=== PATIENT | male | born 1950 | race Caucasian/White ===

== ENCOUNTER 2018-10-03 08:59 | Observation (INO) | payer MEDICARE ==
[2018-10-03] MEDS ORDERED: NS 0.9% 1000 ML** 1,000 ML IV ONE (09:12)
--- NOTE | 2018-10-03 09:15 | ED ---
Neurological HPI - HPI Summary HPI Summary: Pt. is a 67 y.o male who presents to the ER for numbness to right side of face and tingling in bilateral arms that started 30 minutes prior to arrival. Last known well, 829. Pt. states him and his were driving and pt. acutely developed numbness to right side of face and arm tingling. Past medical hx of HTN, TIA, borderline DM, obesity. Pt. states him and his have been traveling for a few weeks and he has been having issues managing his BP over the last few weeks. Pt. states that sxs are similar to prior TIA. Pt. denies CP , SOB, abd. pain, V/D. Symptoms are severe in severity. No current modifying factors. - History of Current Complaint Stated Complaint: FACE IN NUMB/TINGLING PER PT Hx Obtained From: Patient - Additional Pertinent History Primary Care Physician: KEVIN - Allergy/Home Medications Allergies/Adverse Reactions: Allergies Allergy/AdvReac Type Severity Reaction Status Date / Time No Known Allergies Allergy Verified 06/08/15 14:30 Home Medications: Home Medications Amoxicillin 500 mg PO DAILY 10/03/18 [History Confirmed 10/03/18] Losartan TAB* 25 mg PO DAILY 10/03/18 [History Confirmed 10/03/18] Pravastatin (NF) 10 mg PO DAILY 10/03/18 [History Confirmed 10/03/18] PMH/Surg Hx/FS Hx/Imm Hx Previously Healthy: Yes Cardiovascular History: Reports: Hx Hypertension Denies: Hx Pacemaker/ICD GI History: Reports: Hx Diverticulosis Sensory History: Reports: Hx Contacts or Glasses Denies: Hx Hearing Aid Opthamlomology History: Reports: Hx Contacts or Glasses Psychiatric History: Denies: Hx Panic Disorder - Surgical History Surgery Procedure, Year, and Place: KNEE 12/31/14 Infectious Disease History: Denies: Traveled Outside the [place] in Last 30 Days - Social History Alcohol Use: Daily Substance Use Type: Reports: None Smoking Status (MU): Former Smoker Review of Systems Constitutional: Negative Eyes: Negative ENT: Negative Cardiovascular: Negative Respiratory: Negative Gastrointestinal: Negative Genitourinary: Negative Musculoskeletal: Negative Positive: Paresthesia All Other Systems Reviewed And Are Negative: Yes Physical Exam Triage Information Reviewed: Yes Vital Signs Reviewed: Yes Appearance: Positive: Well-Appearing - Pt. sitting up in bed in NAD. Anxious. present. Skin: Positive: Warm, Dry Head/Face: Positive: Normal Head/Face Inspection, Other - Decreased sensation to right side of face. Eyes: Positive: Normal, EOMI, JANES, Conjunctiva Clear Neck: Positive: Supple. Negative: Nuchal Rigidity Respiratory/Lung Sounds: Positive: Clear to Auscultation, Breath Sounds Present Cardiovascular: Positive: Normal, RRR. Negative: Murmur Musculoskeletal: Positive: Normal, Strength/ROM Intact Neurological: Positive: Normal, Alert, Oriented to Person Place, Time, Heel to Toe - normal, Finger to Nose - normal, Facial Symmetry, Speech Normal. Negative : Sensory/Motor Intact - Decreased sensation to right side of face., Cerebellar Dysfunction, Disoriented, Facial Droop, Slurred Speech, Pronator Drift Present Psychiatric: Positive: Affect/Mood Appropriate - Donora Coma Scale Best Eye Response: 4 - Spontaneous Best Motor Response: 6 - Obeys Commands Best Verbal Response: 5 - Oriented Coma Scale Total: 15 Diagnostics - Laboratory Result Diagrams: 10/03/18 09:32 10/03/18 09:32 Lab Statement: Any lab studies that have been ordered have been reviewed, and results considered in the medical decision making process. NIH Scale - NIH Scale Level of Consciousness: Alert/Keenly Responsive Ask Patient the Month and His/Her Age: Both Correct Ask Pt to Open/Close Eyes and Mechanical Maintenance/Release Non-Paretic Hand: Both Correctly Best Gaze (Only Horizontal Eye Movement): Normal Visual Field Testing: No Visual Loss Facial Paresis-Pt to Smile & Close Eyes or Grimace Symmetry: Normal/Symmetrical Motor Function - Right Arm: No Drift-Holds 10 Seconds Motor Function - Left Arm: No Drift-Holds 10 Seconds Motor Function - Right Leg: No Drift-Holds 10 Seconds Motor Function - Left Leg: No Drift-Holds 10 Seconds Limb Ataxia-Must be out of Proportion to Weakness Present: Absent Sensory (Use Pinprick to Test Arms/Legs/Trunk/Face): Pinprick Less on Affected Best Language (Describe Picture, Name Items): No Aphasia Dysarthria (Read Several Words): Normal Extinction and Inattention: No Abnormality Total Score: 1 Course/Dx - Course Course Of Treatment: Pt. presenting for decreased sensation to right side of face and tingling to bilateral arms. NIH stroke scale is 1. Last known well 0830. Code prakash called. HTN at 193/108. 0925: CT brain is negative per Dr. Gant. Pt. examined by neurology, Dr. Herrera. He recommends admission for further work up, MRI brain, CTA head and neck, plavix, ASA, and echo. Pending CTAs. Labs unremarkable other than mild hyperglycemia. ECG done at 0928 shows a sinus rhythm of 67bpm, left axis deviation, no ST elevation of depression. CTA negative for acute findings per radiology. BP improved to 158/88. Will admit for MRI, echo and further evaluation. I spoke with Dr. Fuller and she will accept pt. to her service. - Differential Dx Differential Diagnoses Neuro: Positive: Ding's Palsy, Cerebrovascular Accident, Intracranial Bleed, Medication Reaction, Transient Ischemic Attack, Vasovagal Reaction - Diagnoses Provider Diagnoses: TIA (transient ischemic attack) During the Visit The Following Alert/Code Occurred: Code Sosa - Physician Notifications Discussed Care Of Patient With: Mark Herrera Time Discussed With Above Provider: 09:20 Instructed by Provider To: Admit As Inpatient - Critical Care Time Critical Care Time: 30-74 min - 30 minutes including direct pt. care and consultation. Excludes billable procedures. Discharge - Sign-Out/Discharge Documenting (check all that apply): Patient Departure Patient Received Moderate/Deep Sedation with Procedure: No - Discharge Plan Condition: Stable Disposition: ADMITTED TO [facility] Referrals: Bao Hoffman MD [Primary Care Provider] - - Billing Disposition and Condition Condition: STABLE Disposition: Admitted to [facility]
--- OUTSIDE RECORDS SUMMARY | 2018-10-03 09:17 | XMS REPORT | Continuity of Care Document ---
:1950 External Reference #:[id number] Author Name Camila Pandya Care Team Providers Name Role Phone Bao Hoffman III, MD Primary Care Physician Unavailable Payers Date Identification Numbers Payment Provider Subscriber Policy Number: [id number] Medicare Ruth Hu JR PayID: [id number] [address] [place] [address] Policy Number: [id number] [facility] Ruth Hu JR PayID: [id number] [address] [place] [address] Effective: 2009 Policy Number: Jaspal Hu JR [id number] Expires: 2009 PayID: [id number] [address] [address] [address] Effective: 2007 Policy Number: Jaspal Hu JR [id number] Expires: 2009 PayID: [id number] [address] [address] Effective: 2009 Policy Number: Jaspal Hu JR [id number] Expires: 2011 PayID: [id number] [address] [address] Effective: 2011 Policy Number: [id number] [facility] Ruth Hu JR Expires: 2013 PayID: [id number] [address] [address] [place] [address] Advance Directives Description No Information Available Problems Active Problems Provider Date Benign essential hypertension Bao Hoffman M.D. Onset: 01/29/2011 Impaired fasting glycaemia Bao Hoffman M.D. Onset: 01/29/2011 Sleep apnea Bao Hoffman M.D. Onset: 01/29/2011 Arthralgia of the lower leg Bao Hoffman M.D. Onset: 08/30/2011 Localized, primary osteoarthritis of the Bao Hoffman M.D. Onset: 2012 lower leg Allergic rhinitis Bao Hoffman M.D. Onset: 10/31/2012 Localized, primary osteoarthritis Bao Hoffman M.D. Onset: 05/06/2014 Essential hypertension Bao Hoffman M.D. 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[facility] [employer] Cigarette Use Quit - Age 39 ETOH Use Currently consumes 5-6 "small" glasses alcohol of wine daily Tobacco Use Start: Unknown End: Patient is a former Unknown smoker Smoking Status Reviewed: 09/29/18 Patient is a former smoker Exercise Exercises regularly walks 2 miles 3 Type/Frequency times a week, activa around the house Allergies, Adverse Reactions, Alerts Active Allergies Reaction Severity Comments Date Ultram Nausea, vomiting, diarrhea 09/06/2011 Inactive Allergies NKDA 02/09/2007 Medications Active Medications SIG Qnty Indications Ordering Provider Date Pravastatin Sodium take one tablet 90tabs E78.00 Bao Hoffman, 2016 10mg by mouth every M.D. Tablets evening Flonase Allergy spray 1 spray in 16units Bao Hoffman, 11/27/2015 Relief each nostril M.D. 50mcg/Act once a day Suspension Losartan Potassium take one tablet 90tabs I10 Bao Hoffman, 06/16/2015 25mg by mouth every M.D. Tablets day Toprol XL take one tablet 90tabs Bao Hoffman, 02/09/2007 50mg Tablets by mouth every M.D. ER 24HR day History Medications Cyclobenzaprine HCL one by mouth 30tabs M54.5 Bao Diggs 11/27/2015 - 10mg three times a Ally Hoffman 07/26/2016 Tablets day as needed spasm Aleve as needed Bao Diggs 06/16/2015 - 220mg Tablets Ally Hoffman 07/24/2015 Aspir-81 1 by mouth 100tabs Other Ordering 06/10/2015 - 81mg Tablets DR every day Provider 09/29/2018 Zostavax 1 dose s/c 1units Bao Diggs 05/06/2014 - 30909Mle/0.65ML Ally Hoffman 07/24/2015 Solution Rec Ultram 1-2 po qid prn 715.16 Richardson Cochran, 09/06/2011 - 50mg Tablets M.DPrincess 04/07/2012 Ultram sig 1 po q8h 40tabs 715.16 Richardson Cochran, 09/03/2011 - 50mg Tablets prn Cee.Marielena 09/06/2011 Dyazide 1 po qd 90caps Bao Diggs 02/09/2007 - 37.5-25 Capsules Ally Hoffman 06/28/[address] [place] [address] 16[place] Diggs 02/09/2007 - 50mcg/Act In Each Nostril Ally Hoffman 06/16/2015 Suspension Daily as Directed Ibuprofen 3 daily prn Unknown - 200mg Capsules 06/10/2015 Tylenol Arthritis Pain 2 tab twice a Bao Diggs - day as needed Ally Hoffman 09/29/2018 650mg Tablets ER Turmeric 1 po qd Unknown - 450mg Capsules 01/16/2017 Medications Administered in Office Medication SIG Qnty Indications Ordering Provider Date Influenza Virus Vaccine Unknown 02/27/2015 Injection Influenza Virus Vaccine Unknown 03/30/2014 Injection Influenza Virus Vaccine Bao Hoffman M.D. 03/30/2013 Injection Injection Hyaluronan Or Richardson Cochran M.D. 09/24/2011 Derivative, Euflexxa Per Dose Injection Immunizations CPT Code Status Date Vaccine Lot # [id number] Given 07/26/2016 Pneumonia Vaccine [id number] Given 06/16/2015 Pneumococcal Conjugate Vaccine 13 Valent For [id number] Intramuscular Use [id number] Given 05/30/2014 Zoster (Zostavax) [id number] Given 07/28/2011 Tdap - Tetanus/Diptheria/Acellular Pertussis [id number] Given 09/26/2001 Td (History By Patient) Vital Signs Date Vital Result Comment 09/29/2018 10:19am Height 73 inches 6'1" Weight 291.50 lb Heart Rate 63 /min BP Systolic 186 mmHg BP Diastolic 102 mmHg Body Temperature 98.4 F O2 % BldC Oximetry 98 % BMI (Body Mass Index) 38.5 kg/m2 07/18/2017 10:38am Height 73.5 inches 6'1.50" Weight 281.19 lb Heart Rate 53 /min BP Systolic Sitting 128 mmHg BP Diastolic Sitting 78 mmHg O2 % BldC Oximetry 93 % BMI (Body Mass Index) 36.6 kg/m2 01/17/2017 9:57am Weight 288.00 lb Heart Rate 57 /min BP Systolic Sitting 144 mmHg BP Diastolic Sitting 80 mmHg Body Temperature 97.2 F O2 % BldC Oximetry 98 % 07/26/2016 3:37pm Weight 287.00 lb Heart Rate 60 /min BP Systolic Sitting 142 mmHg BP Diastolic Sitting 84 mmHg Respiratory Rate 15 /min Body Temperature 98.2 F O2 % BldC Oximetry 98 % 11/27/2015 4:07pm Height 73.5 inches 6'1.50" Weight 280.25 lb Heart Rate 53 /min BP Systolic Sitting 158 mmHg BP Diastolic Sitting 88 mmHg Body Temperature 97.6 F O2 % BldC Oximetry 96 % BMI (Body Mass Index) 36.5 kg/m2 07/24/2015 2:57pm Height 73.5 inches 6'1.50" Weight 278.25 lb BP Systolic 118 mmHg BP Diastolic 76 mmHg Body Temperature 96.7 F O2 % BldC Oximetry 98 % BMI (Body Mass Index) 36.2 kg/m2 06/16/2015 2:26pm Height 73.5 inches 6'1.50" Weight 285.00 lb Heart Rate 55 /min BP Systolic 143 mmHg BP Diastolic 82 mmHg Body Temperature 97.1 F O2 % BldC Oximetry 99 % BMI (Body Mass Index) 37.1 kg/m2 05/06/2014 3:11pm Height 73.5 inches 6'1.50" Weight 301.00 lb Heart Rate 64 /min BP Systolic Sitting 152 mmHg BP Diastolic Sitting 94 mmHg Body Temperature 97.1 F BMI (Body Mass Index) 39.2 kg/m2 07/06/2013 8:47am Height 73.5 inches 6'1.50" Weight 297.75 lb Heart Rate 60 /min BP Systolic Sitting 128 mmHg BP Diastolic Sitting 74 mmHg BMI (Body Mass Index) 38.7 kg/m2 10/31/2012 8:53am Height 73.75 inches 6'1.75" Weight 304.00 lb Heart Rate 78 /min BP Systolic Sitting 138 mmHg BP Diastolic Sitting 76 mmHg BMI (Body Mass Index) 39.3 kg/m2 04/07/2012 9:40am Height 73.75 inches 6'1.75" Weight 303.00 lb Heart Rate 60 /min BP Systolic Sitting 138 mmHg BP Diastolic Sitting 88 mmHg BMI (Body Mass Index) 39.2 kg/m2 09/03/2011 9:51am Height 73.75 inches 6'1.75" Weight 299.00 lb BMI (Body Mass Index) 38.6 kg/m2 08/30/2011 10:56am Height 73.75 inches 6'1.75" Weight 299.00 lb Heart Rate 60 /min BP Systolic Sitting 146 mmHg BP Diastolic Sitting 76 mmHg BMI (Body Mass Index) 38.6 kg/m2 07/28/2011 8:50am Height 73.75 inches 6'1.75" Weight 299.75 lb Heart Rate 64 /min BP Systolic Sitting 138 mmHg BP Diastolic Sitting 86 mmHg BMI (Body Mass Index) 38.7 kg/m2 01/29/2011 9:13am Height 73.5 inches 6'1.50" Weight 295.00 lb Heart Rate 78 /min BP Systolic Sitting 138 mmHg l BP Diastolic Sitting 72 mmHg l BMI (Body Mass Index) 38.4 kg/m2 07/31/2010 9:05am Weight 284.00 lb Heart Rate 66 /min BP Systolic 140 mmHg BP Diastolic 90 mmHg 02/06/2010 9:02am Weight 294.00 lb Heart Rate 78 /min BP Systolic Sitting 168 mmHg BP Diastolic Sitting 82 mmHg 08/01/2009 9:45am Weight 296.00 lb Heart Rate 64 /min BP Systolic Sitting 150 mmHg BP Diastolic Sitting 82 mmHg 06/28/2008 9:13am Weight 277.00 lb Heart Rate 56 /min BP Systolic Sitting 104 mmHg BP Diastolic Sitting 80 mmHg 06/20/2007 9:10am Height 74 inches 6'2" Weight 277.00 lb Heart Rate 76 /min BP Systolic Sitting 116 mmHg BP Diastolic Sitting 78 mmHg BMI (Body Mass Index) 35.6 kg/m2 Results Test Date Facility Test Result H/L Range Note Laboratory test 09/29/2018 [facility] Hemoglobin A1c 5.8 5-7 finding Laboratory test 07/18/2017 [facility] Hemoglobin A1c 5.6 5-7 finding Laboratory test 07/14/2017 [facility] PSA Screening 0.190 ng/mL N 0-4.000 1 finding [address] [place] [address] [phone] Comp Metabolic 07/14/2017 [facility] Sodium 137 mmol/L N 133- 145 Panel [address] [place] [address] [phone] Potassium 4.3 mmol/L N 3.5-5.0 Chloride 104 mmol/L N 101-111 Co2 Carbon Dioxide 27 mmol/L N 22-32 Anion Gap 6 mmol/L N 2-11 Glucose 126 mg/dL High 70-100 Blood Urea Nitrogen 17 mg/dL N 6-24 Creatinine 0.78 mg/dL N 0.67-1.17 BUN/Creatinine Ratio 21.8 High 8-20 Calcium 8.9 mg/dL N 8.6-10.3 Total Protein 6.3 g/dL Low 6.4-8.9 Albumin 4.2 g/dL N 3.2-5.2 Globulin 2.1 g/dL N 2-4 Albumin/Globulin Ratio 2.0 N 1-3 Total Bilirubin 0.50 mg/dL N 0.2-1.0 Alkaline Phosphatase 68 U/L N 34-104 Alt 30 U/L N 7-52 Ast 19 U/L N 13-39 Egfr Non- 99.3 >60 Egfr 127.7 >60 2 Lipid Profile 07/14/2017 [facility] Triglycerides 202 mg/dL 3 (Trig/Chol/HDL) [address] [place] [address] [phone] Cholesterol 137 mg/dL 4 HDL Cholesterol 33.5 mg/dL 5 LDL Cholesterol 63 mg/dL 6 Lipid Profile 07/26/2016 [facility] Triglycerides 135 mg/dL N 7 (Trig/Chol/HDL) [address] [place] [address] [phone] Cholesterol 157 mg/dL N 8 HDL Cholesterol 40.8 mg/dL N 9 LDL Cholesterol 89 mg/dL N 10 Comp Metabolic Panel 07/26/2016 [facility] Sodium 137 mmol/L N 133-145 [address] [place] [address] [phone] Potassium 4.4 mmol/L N 3.5-5.0 Chloride 102 mmol/L N 101-111 Co2 Carbon Dioxide 29 mmol/L N 22-32 Anion Gap 6 mmol/L N 2-11 Glucose 145 mg/dL High 70-100 Blood Urea Nitrogen 15 mg/dL N 6-24 Creatinine 0.80 mg/dL N 0.67-1.17 BUN/Creatinine Ratio 18.8 N 8-20 Calcium 9.1 mg/dL N 8.6-10.3 Total Protein 6.4 g/dL N 6.4-8.9 Albumin 4.1 g/dL N 3.2-5.2 Globulin 2.3 g/dL N 2-4 Albumin/Globulin Ratio 1.8 N 1-3 Total Bilirubin 0.60 mg/dL N 0.2-1.0 Alkaline Phosphatase 58 U/L N 34-104 Alt 32 U/L N 7-52 Ast 20 U/L N 13-39 Egfr Non- 96.7 N >60 Egfr 124.4 N >60 11 Basic Metabolic Panel 07/04/2015 [facility] Sodium 139 mmol/L N 133-145 [address] [place] [address] [phone] Potassium 4.3 mmol/L N 3.5-5.0 Chloride 104 mmol/L N 101-111 Co2 Carbon Dioxide 28 mmol/L N 22-32 Anion Gap 7 mmol/L N 2-11 Glucose 99 mg/dL N 70-100 Blood Urea Nitrogen 17 mg/dL N 6-24 Creatinine 0.85 mg/dL N 0.67-1.17 BUN/Creatinine Ratio 20.0 N 8-20 Calcium 8.9 mg/dL N 8.6-10.3 Egfr Non- 90.5 N >60 Egfr 116.3 N >60 12 Laboratory test 07/04/2015 [facility] Uric Acid 6.1 mg/dL N 4.4-7.6 finding [address] [place] [address] [phone] CBC Auto Diff 06/08/2015 [facility] White Blood 5.4 10^3/uL N 3.5-10.[address] [place] [address] [phone] Red Blood Count 4.71 10^6/uL N 4.0-5.4 Hemoglobin 15.0 g/dL N 14.0-18.0 Hematocrit 44 % N 42-52 Mean Corpuscular Volume 93 fL N 80-94 Mean Corpuscular Hemoglobin 32 pg High 27-31 Mean Corpuscular HGB Conc 34 g/dL N 31-36 Red Cell Distribution Width 13 % N 10.5-15 Platelet Count 153 10^3/uL N 150-450 Mean Platelet Volume 8 um3 N 7.4-10.4 Abs Neutrophils 3.3 10^3/uL N 1.5-7.7 Abs Lymphocytes 1.5 10^3/uL N 1.0-4.8 Abs Monocytes 0.5 10^3/uL N 0-0.8 Abs Eosinophils 0.1 10^3/uL N 0-0.6 Abs Basophils 0 10^3/uL N 0-0.2 Abs Nucleated RBC 0.01 10^3/uL N Granulocyte % 60.6 % N 38-83 Lymphocyte % 27.7 % N 25-47 Monocyte % 9.4 % High 1-9 Eosinophil % 1.8 % N 0-6 Basophil % 0.5 % N 0-2 Nucleated Red Blood Cells % 0.1 N Inr/Protime 06/08/2015 [facility] Inr 1.09 N 0.89-1.[address] [place] [address] [phone] Laboratory test 06/08/2015 [facility] Hemoglobin A1c 5.1 % N Less than [address] (Glyco HGB) 6.0 [place] [address] [phone] Laboratory test 06/08/2015 [facility] Partial 31.9 N 26.0- 36.[address] [place] [address] PTT [phone] Comp Metabolic 06/08/2015 [facility] Sodium 137 mmol/L N 133- [address] [place] [address] [phone] Potassium 4.2 mmol/L N 3.5-5.0 Chloride 105 mmol/L N 101-111 Co2 Carbon Dioxide 27 mmol/L N 22-32 Anion Gap 5 mmol/L N 2-11 Glucose 110 mg/dL High 70-100 Blood Urea Nitrogen 13 mg/dL N 6-24 Creatinine 0.84 mg/dL N 0.67-1.17 BUN/Creatinine Ratio 15.5 N 8-20 Calcium 9.2 mg/dL N 8.6-10.3 Total Protein 6.6 g/dL N 6.4-8.9 Albumin 4.3 g/dL N 3.2-5.2 Globulin 2.3 g/dL N 2-4 Albumin/Globulin Ratio 1.9 N 1-3 Total Bilirubin 0.80 mg/dL N 0.2-1.0 Alkaline Phosphatase 58 U/L N 34-104 Alt 46 U/L N 7-52 Ast 27 U/L N 13-39 Egfr Non- 91.7 N >60 Egfr 117.9 N >60 14 Laboratory test 06/08/2015 [facility] Troponin-I (TnI) 0.00 ng/ mL N <0.03 15 finding [address] [place] [address] [phone] Lipid Profile 06/08/2015 [facility] Triglycerides 170 mg/dL N 16 (Trig/Chol/HDL) [address] [place] [address] [phone] Cholesterol 157 mg/dL N 17 HDL Cholesterol 39.7 mg/dL N 18 LDL Cholesterol 83 mg/dL N 19 CBC Auto Diff 06/08/2015 [facility] White Blood 5.4 10^3/uL N 3.5-10.[address] [place] [address] [phone] Red Blood Count 4.71 10^6/uL N 4.0-5.4 Hemoglobin 15.0 g/dL N 14.0-18.0 Hematocrit 44 % N 42-52 Mean Corpuscular Volume 93 fL N 80-94 Mean Corpuscular Hemoglobin 32 pg High 27-31 Mean Corpuscular HGB Conc 34 g/dL N 31-36 Red Cell Distribution Width 13 % N 10.5-15 Platelet Count 153 10^3/uL N 150-450 Mean Platelet Volume 8 um3 N 7.4-10.4 Abs Neutrophils 3.3 10^3/uL N 1.5-7.7 Abs Lymphocytes 1.5 10^3/uL N 1.0-4.8 Abs Monocytes 0.5 10^3/uL N 0-0.8 Abs Eosinophils 0.1 10^3/uL N 0-0.6 Abs Basophils 0 10^3/uL N 0-0.2 Abs Nucleated RBC 0.01 10^3/uL N Granulocyte % 60.6 % N 38-83 Lymphocyte % 27.7 % N 25-47 Monocyte % 9.4 % High 1-9 Eosinophil % 1.8 % N 0-6 Basophil % 0.5 % N 0-2 Nucleated Red Blood Cells % 0.1 N Laboratory test 06/08/2015 [facility] Inr/Protime 1.09 N 0.89- 1.11 finding [address] [place] [address] [phone] Partial Thrombo Time PTT 31.9 seconds N 26.0-36.3 Comp Metabolic Panel 06/08/2015 [facility] Sodium 137 mmol/L N 133-145 [address] [place] [address] [phone] Potassium 4.2 mmol/L N 3.5-5.0 Chloride 105 mmol/L N 101-111 Co2 Carbon Dioxide 27 mmol/L N 22-32 Anion Gap 5 mmol/L N 2-11 Glucose 110 mg/dL High 70-100 Blood Urea Nitrogen 13 mg/dL N 6-24 Creatinine 0.84 mg/dL N 0.67-1.17 BUN/Creatinine Ratio 15.5 N 8-20 Calcium 9.2 mg/dL N 8.6-10.3 Total Protein 6.6 g/dL N 6.4-8.9 Albumin 4.3 g/dL N 3.2-5.2 Globulin 2.3 g/dL N 2-4 Albumin/Globulin Ratio 1.9 N 1-3 Total Bilirubin 0.80 mg/dL N 0.2-1.0 Alkaline Phosphatase 58 U/L N 34-104 Alt 46 U/L N 7-52 Ast 27 U/L N 13-39 Egfr Non- 91.7 N >60 Egfr 117.9 N >60 20 Laboratory test 06/08/2015 [facility] Troponin-I (TnI) 0.00 ng/ mL N <0.03 21 finding [address] [place] [address] [phone] Lipid Profile 06/08/2015 [facility] Triglycerides 170 mg/dL N 22 (Trig/Chol/HDL) [address] [place] [address] [phone] Cholesterol 157 mg/dL N 23 HDL Cholesterol 39.7 mg/dL N 24 LDL Cholesterol 83 mg/dL N 25 Laboratory test 08/21/2014 [facility] PSA Screening 0.226 ng/mL N 0-4.000 26 finding [address] [place] [address] [phone] Basic Metabolic 08/21/2014 [facility] Sodium 138 mmol/L N 133- 145 Panel [address] [place] [address] [phone] Potassium 4.3 mmol/L N 3.5-5.0 Chloride 106 mmol/L N 101-111 Co2 Carbon Dioxide 25 mmol/L N 22-32 Anion Gap 7 mmol/L N 2-11 Glucose 128 mg/dL High 70-100 Blood Urea Nitrogen 19 mg/dL N 6-24 Creatinine 0.87 mg/dL N 0.67-1.17 BUN/Creatinine Ratio 21.8 High 8-20 Calcium 9.1 mg/dL N 8.6-10.3 Egfr Non- 88.3 N >60 Egfr 113.6 N >60 27 Laboratory test 05/06/2014 [facility] Hemoglobin A1c 5.9 5-7 finding Basic Metabolic 04/29/2014 [facility] Sodium 138 mmol/L N 133- 145 Panel [address] [place] [address] [phone] Potassium 4.4 mmol/L N 3.5-5.0 28 Chloride 106 mmol/L N 101-111 Co2 Carbon Dioxide 24 mmol/L N 22-32 Anion Gap 8 mmol/L N 2-11 Glucose 156 mg/dL High 70-100 Blood Urea Nitrogen 13 mg/dL N 6-24 Creatinine 0.90 mg/dL N 0.67-1.17 BUN/Creatinine Ratio 14.4 N 8-20 Calcium 8.8 mg/dL N 8.6-10.3 Egfr Non- 85.0 N >60 Egfr 109.3 N >60 29 Laboratory 04/29/2014 [facility] Hepatitis C Nonreactive N Nonreactive test finding [address] [place] [address] [phone] Lipid Profile 04/29/2014 [facility] Triglycerides 116 mg/dL N 30 (Trig/Chol/HD [address]) [place] [address] [phone] Cholesterol 171 mg/dL N 31 HDL Cholesterol 38.0 mg/dL N 32 LDL Cholesterol 110 mg/dL N 33 CBC Auto Diff 11/13/2012 [facility] White Blood 5.1 10^3/uL 4.8-10.[address] [place] [address] [phone] Red Blood Count 4.66 10^6/uL 4.0-5.4 Hemoglobin 15.5 g/dL 14.0-18.0 Hematocrit 44 % 42-52 Mean Corpuscular Volume 94 fL 80-94 Mean Corpuscular Hemoglobin 33 pg High 27-31 Mean Corpuscular HGB Conc 36 g/dL 31-36 Red Cell Distribution Width 13 % 10.5-15 Platelet Count 148 10^3/uL Low 150-450 Mean Platelet Volume 9 um3 7.4-10.4 Abs Neutrophils 2.9 10^3/uL 1.5-7.7 Abs Lymphocytes 1.7 10^3/uL 1.0-4.8 Abs Monocytes 0.5 10^3/uL 0-0.8 Abs Eosinophils 0.1 10^3/uL 0-0.6 Abs Basophils 0 10^3/uL 0-0.2 Abs Nucleated RBC 0.01 10^3/uL Granulocyte % 55.8 % 38-83 Lymphocyte % 32.2 % 25-47 Monocyte % 10.3 % High 1-9 Eosinophil % 1.4 % 0-6 Basophil % 0.3 % 0-2 Nucleated Red Blood Cells % 0.3 Comp Metabolic Panel 11/13/2012 [facility] Sodium 137 mmol/L 133-[address] [place] [address] [phone] Potassium 4.3 mmol/L 3.5-5.0 Chloride 106 mmol/L 101-111 Co2 Carbon Dioxide 27.0 mmol/L 22-32 Anion Gap 4.0 mmol/L 2-11 Glucose 117 mg/dL High 70-100 Blood Urea Nitrogen 15 mg/dL 6-24 Creatinine 1.00 mg/dL 0.50-1.40 BUN/Creatinine Ratio 15.0 8-20 Calcium 8.7 mg/dL 8.1-9.9 Total Protein 6.2 g/dL 6.2-8.1 Albumin 4.2 g/dL 3.2-5.2 Globulin 2.0 g/dL 2-4 Albumin/Globulin Ratio 2.1 1-3 Total Bilirubin 1.0 mg/dL 0.4-1.5 Alkaline Phosphatase 59 U/L 30-110 Alt 58 U/L High 14-54 Ast 41 U/L 12-42 Egfr Non- 75.7 >60 Egfr 97.4 >60 34 Lipid Profile 11/13/2012 [facility] Triglycerides 92 mg/dL 40 -200 (Trig/Chol/HDL) [address] [place] [address] [phone] Cholesterol 126 mg/dL Less than 200 HDL Cholesterol 34 mg/dL Low 40-60 35 Cholesterol/HDL Ratio 3.7 Average 1-4.44 LDL Cholesterol 73.6 Less Than 100 36 Laboratory test 11/13/2012 [facility] PSA Screening 0.2 ng/mL 0-4.0 37 finding [address] [place] [address] [phone] Laboratory test 10/31/2012 [facility] Hemoglobin A1c 5.7 5-[address] [facility] 07/27/2011 [facility] TSH 2.51 0.34-5.60 Panel [address] [facility] MI[facility] [address] [phone] Comp Metabolic 07/27/2011 [facility] Sodium 139 mmol/L 135- [address] [place] [address] [phone] Potassium 4.4 mmol/L 3.5-5.0 Chloride 108 mmol/L 101-111 Co2 (Carbon Dioxide) 25.0 mmol/L 22-32 Anion Gap 6.0 mmol/L 2-11 38 Glucose 141 mg/dL High 70-100 BUN 16 mg/dL 6-24 Creatinine 1.1 mg/dL 0.50-1.40 One Over Creatinine 0.90 BUN/Creatinine Ratio 14.5 8-20 Calcium 8.8 mg/dL 8.1-9.9 Total Protein 6.1 GM/DL Low 6.2-8.1 Albumin 4.0 GM/DL 3.2-5.2 Globulin 2.1 GM/DL 2-4 Albumin/Globulin Ratio 1.9 1-3 Bilirubin Total 0.8 mg/dL 0.4-1.5 39 Alkaline Phosphatase 83 U/L 39-117 Alt (SGPT) 72 U/L High 17-63 Ast (Sgot) 39 U/L 12-42 eGFR Non- 68.1 > 60 eGFR 87.5 > 60 40 Lipid Profile 07/27/2011 [facility] Triglyceride 201 mg/dL High 40-200 (Trig/Chol/HDL) [address] [place] [address] [phone] Cholesterol 167 mg/dL Less Than 200 41 High Density Lipoprotein 34 mg/dL Low 40-60 42 Cholesterol/HDL Ratio 4.91 AVERAGE 1-4.97 Low Density Lipoprotein 93 mg/dL Less Than 100 43 CBC Auto Diff 07/27/2011 [facility] White Blood 5.5 CUMM 4.8- 10.[address] [place] [address] [phone] Red Cell Count 4.66 CUMM 4.6-6.2 Hemoglobin 15.4 g/dL 14.0-18.0 Hematocrit 43 % 42-52 Mean Corpuscular Volume 93 um3 80-94 Mean Corpuscular Hemoglob 33 pg High 27-31 Mean Corpuscular HGB Cone 36 g/dL 32-36 Redcell Distribution WDTH 12 % 10.5-15 Platelet Count 152 CUMM 150-450 Mean Platelet Volume 8.7 um3 7.4-10.4 Gran % 56.9 % 38-83 Lymph % 30.7 % 25-47 Mononuclear % 9.1 % High 1-9 Eosinophil % 2.9 % 0-6 Basophil % 0.4 % 0-2 Abs Lymphs 1.7 1.0-4.8 Abs Mononuclear 0.5 0-0.8 Absolute Neutrophil Count 3.1 1.5-7.7 Abs Eosinophils 0.2 0-0.6 Abs Basophils 0 0-0.2 Laboratory test 07/27/2011 [facility] Hemoglobin A1c 5.7 % Less Than [address] [place] [address] [phone] PSA 0.15 NG/ML 0-4 45 Laboratory test 07/31/2010 [facility] Hemoglobin A1c 5.5 5-7 finding Laboratory test 08/01/2009 [facility] PSA Screening 0.29 NG/ML 0-4 46 finding [address] [place] [address] [phone] Hemoglobin A1c 5.8 % Less Than 6.0 47 Basic Metabolic Panel 08/01/2009 [facility] Sodium 142 mmol/L 135-145 [address] [place] [address] [phone] Potassium 4.6 mmol/L 3.5-5.0 Chloride 110 mmol/L 101-111 Co2 (Carbon Dioxide) 28 mmol/L 22-32 Anion Gap 4 mmol/L 2-11 48 Glucose 110 mg/dL High 70-100 49 BUN 10 mg/dL 6-24 Creatinine 0.98 mg/dL 0.50-1.40 One Over Creatinine 1.00 BUN/Creatinine Ratio 10.2 8-20 Calcium 9.4 mg/dL 8.1-9.9 50 eGFR Non- 83.2 > 60 eGFR 100.7 > 60 51 Laboratory test 06/28/2008 [facility] Hemoglobin A1c 5.4 % < 6.0 52, 53 finding [address] [place] [address] [phone] CBC With 06/28/2008 [facility] White Blood 4.8 CUMM 4.8-10.8 Electronic Diff [address] [place] [address] [phone] Red Cell Count 4.68 CUMM 4.6-6.2 Hemoglobin 15.6 g/dL 14.0-18.0 Hematocrit 46 % 42-52 54 Mean Corpuscular Volume 93 um3 80-94 Mean Corpuscular Hemoglob 33 pg High 27-31 Mean Corpuscular HGB Cone 36 g/dL 32-36 Redcell Distribution WDTH 12 % 10.5-15 Platelet Count 167 CUMM 150-450 Mean Platelet Volume 8.3 um3 7.4-10.4 Gran % 56.8 % 38-83 Lymph % 32.6 % 25-47 Mononuclear % 8.4 % 1-9 Eosinophil % 1.9 % 0-6 Basophil % 0.3 % 0-2 Abs Lymphs 1.6 1.0-4.8 Abs Mononuclear 0.4 0-0.8 Absolute Neutrophil Count 2.7 1.5-7.7 Abs Eosinophils 0.1 0-0.6 Abs Basophils 0 0-0.2 55 Laboratory test 06/28/2008 [facility] TSH 1.72 MIU/ML 0.34- 5.60 finding [address] [place] [address] [phone] PSA Screening 0.17 NG/ML 0-4 56 Lipid Profile 06/28/2008 [facility] Triglyceride 88 mg/dL 40- 200 (Trig/Chol/HDL) [address] [place] [address] [phone] Cholesterol 164 mg/dL Less Than 200 57 High Density Lipoprotein 36 mg/dL Low 40-60 58 Cholesterol/HDL Ratio 4.56 AVERAGE 1-4.97 Low Density Lipoprotein 110 mg/dL High Less Than 100 59 Comp Metabolic Panel 06/28/2008 [facility] Sodium 136 mmol/L 135-145 [address] [place] [address] [phone] Potassium 4.7 mmol/L 3.5-5.0 Chloride 103 mmol/L 101-111 Co2 (Carbon Dioxide) 28.0 mmol/L 22-32 Anion Gap 5.0 mmol/L 2-11 60 Glucose 111 mg/dL High 70-100 61 BUN 13 mg/dL 6-24 Creatinine 0.90 mg/dL 0.50-1.40 One Over Creatinine 1.10 BUN/Creatinine Ratio 14.4 8-20 Calcium 8.9 mg/dL 8.1-9.9 62 Total Protein 5.7 GM/DL Low 6.2-8.1 Albumin 3.8 GM/DL 3.6-5.4 Globulin 1.9 GM/DL Low 2-4 Albumin/Globulin Ratio 2.0 1-3 Bilirubin Total 0.9 mg/dL 0.4-1.5 Alkaline Phosphatase 56 U/L 39-117 Alt (SGPT) 32 U/L 17-63 Ast (Sgot) 24 U/L 12-42 Comp Metabolic Panel 06/15/2007 [facility] One Over Creatinine 1.11 [address] [place] [address] [phone] Anion Gap 7.0 mmol/L 2-11 63 Albumin/Globulin Ratio 1.7 1-3 Albumin 3.8 GM/DL 3.6-5.4 Alkaline Phosphatase 56 U/L 39-117 Alt (SGPT) 34 U/L 17-63 Ast (Sgot) 24 U/L 12-42 BUN 15 mg/dL 6-24 Calcium 8.8 mg/dL 8.7-10.2 Chloride 106 mmol/L 101-111 Co2 (Carbon Dioxide) 26.0 mmol/L 22-32 Globulin 2.3 GM/DL 2-4 Glucose 118 mg/dL High 70-105 Potassium 4.2 mmol/L 3.5-5.0 Sodium 139 mmol/L 135-145 Bilirubin Total 1.0 mg/dL 0.4-1.5 Total Protein 6.1 GM/DL Low 6.2-8.1 BUN/Creatinine Ratio 16.7 8-20 Creatinine 0.9 mg/dL 0.5-1.4 Lipid Profile 06/15/2007 [facility] Cholesterol/HDL 5.07 High 1-4.97 (Trig/Chol/HDL) [address] [place] [place] [address] [phone] Cholesterol 152 mg/dL Less Than 200 64 Triglyceride 145 mg/dL 40-200 High Density Lipoprotein 30 mg/dL Low 40-60 65 Low Density Lipoprotein 93 mg/dL Less Than 100 66 Laboratory test 06/15/2007 [facility] PSA Screening 0.15 NG/ML 0-4 [address] [place] [address] [phone] TSH 2.12 MIU/ML 0.34-5.60 CBC W/ Electronic 06/15/2007 [facility] White Blood 7.0 CUMM 4.8-10.[address] [place] [address] [phone] Abs Basophils 0 0-0.2 Abs Eosinophils 0.1 0-0.6 Absolute Neutrophil Count 4.4 1.5-7.7 Abs Lymphs 1.9 1.0-4.8 Abs Mononuclear 0.6 0-0.8 Basophil % 0.4 % 0-2 Hematocrit 45 % 42-52 Hemoglobin 15.9 g/dL 14.0-18.0 Eosinophil % 1.6 % 0-6 Gran % 62.7 % 38-83 Lymph % 26.9 % 20-45 Mean Corpuscular HGB Cone 36 g/dL 32-36 Mean Corpuscular Hemoglob 33 pg High 27-31 Mean Corpuscular Volume 93 um3 80-94 Mean Platelet Volume 8.0 um3 7.4-10.4 Mononuclear % 8.4 % 1-9 Platelet Count 194 CUMM 150-450 Red Cell Count 4.83 CUMM 4.6-6.2 Redcell Distribution WDTH 12 % 10.5-15 1 Serum levels of PSA measured using the [employer] DXI Hybritech immunoassay should not be interpreted as absolute evidence of the presence or absence of disease. The PSA value should be used in conjunction with other pertinent clinical diagnostic procedures. A PSA value in the range of 0.1 to 0.6 ng/ml is indeterminate if being used as an indicator of recurrent or residual disease. The values obtained with different assay methods or kits cannot be used interchangeably. 2 Because ethnic data is not always readily available, this report includes an eGFR for both -Americans and non- Americans. The National Kidney Disease Education Program (NKDEP) does not endorse the use of the MDRD equation for patients that are not between the ages of 18 and 70, are , have extremes of body size, muscle mass, or nutritional status, or are non- or non-. According to the National Kidney Foundation, irrespective of diagnosis, the stage of the disease is based on the level of kidney function: Stage Description GFR(mL/min/1.73 m(2)) 1 Kidney damage with normal or decreased GFR 90 2 Kidney damage with mild decrease in GFR 60-89 3 Moderate decrease in GFR 30-59 4 Severe decrease in GFR 15-29 5 Kidney failure <15 (or dialysis) 3 Desirable: <150 Borderline High: 150-199 High: 200-499 Very High: >500 4 Desirable: <200 Borderline High: 200-239 High: >239 5 Low: <40 Desirable: 40-60 High: >60 6 Desirable: <100 Near Optimal: 100-129 Borderline High: 130-159 High: 160-189 Very High: >189 7 Desirable <150 Borderline high 150-199 High 200-499 Very High >500 8 Desirable <200 Borderline high 200-239 High >239 9 Low <40 Desirable: 40-60 High: >60 10 Desirable: <100 mg/dL Near Optimal: 100-129 mg/dL Borderline High: 130-159 mg/dL High: 160-189 mg/dL Very High: >189 mg/dL 11 Because ethnic data is not always readily available, this report includes an eGFR for both -Americans and non- Americans. The National Kidney Disease Education Program (NKDEP) does not endorse the use of the MDRD equation for patients that are not between the ages of 18 and 70, are , have extremes of body size, muscle mass, or nutritional status, or are non- or non-. According to the National Kidney Foundation, irrespective of diagnosis, the stage of the disease is based on the level of kidney function: Stage Description GFR(mL/min/1.73 m(2)) 1 Kidney damage with normal or decreased GFR 90 2 Kidney damage with mild decrease in GFR 60-89 3 Moderate decrease in GFR 30-59 4 Severe decrease in GFR 15-29 5 Kidney failure <15 (or dialysis) 12 Because ethnic data is not always readily available, this report includes an eGFR for both -Americans and non- Americans. The National Kidney Disease Education Program (NKDEP) does not endorse the use of the MDRD equation for patients that are not between the ages of 18 and 70, are , have extremes of body size, muscle mass, or nutritional status, or are non- or non-. According to the National Kidney Foundation, irrespective of diagnosis, the stage of the disease is based on the level of kidney function: Stage Description GFR(mL/min/1.73 m(2)) 1 Kidney damage with normal or decreased GFR 90 2 Kidney damage with mild decrease in GFR 60-89 3 Moderate decrease in GFR 30-59 4 Severe decrease in GFR 15-29 5 Kidney failure <15 (or dialysis) 13 Therapeutic target for the treatment of diabetes Mellitus patients is <7% HBA1C, and in selective patients <6.0%.Please refer to [place] [employer] Diabetic care guidelines for further information. 14 Because ethnic data is not always readily available, this report includes an eGFR for both -Americans and non- Americans. The National Kidney Disease Education Program (NKDEP) does not endorse the use of the MDRD equation for patients that are not between the ages of 18 and 70, are , have extremes of body size, muscle mass, or nutritional status, or are non- or non-. According to the National Kidney Foundation, irrespective of diagnosis, the stage of the disease is based on the level of kidney function: Stage Description GFR(mL/min/1.73 m(2)) 1 Kidney damage with normal or decreased GFR 90 2 Kidney damage with mild decrease in GFR 60-89 3 Moderate decrease in GFR 30-59 4 Severe decrease in GFR 15-29 5 Kidney failure <15 (or dialysis) 15 Reference Range and Interpretation: TnI (ng/mL) Interpretation Less Than 0.03 ng/mL Not supportive of diagnosis of DC 0.03 - 0.50 ng/mL Indeterminate: suggest serial studies if clinically indicated. Greater than 0.5 ng/mL Consistent with diagnosis of DC 16 Desirable <150 Borderline high 150-199 High 200-499 Very High >500 17 Desirable <200 Borderline high 200-239 High >239 18 Low <40 Desirable: 40-60 High: >60 19 Desirable: <100 mg/dL Near Optimal: 100-129 mg/dL Borderline High: 130-159 mg/dL High: 160-189 mg/dL Very High: >189 mg/dL 20 Because ethnic data is not always readily available, this report includes an eGFR for both -Americans and non- Americans. The National Kidney Disease Education Program (NKDEP) does not endorse the use of the MDRD equation for patients that are not between the ages of 18 and 70, are , have extremes of body size, muscle mass, or nutritional status, or are non- or non-. According to the National Kidney Foundation, irrespective of diagnosis, the stage of the disease is based on the level of kidney function: Stage Description GFR(mL/min/1.73 m(2)) 1 Kidney damage with normal or decreased GFR 90 2 Kidney damage with mild decrease in GFR 60-89 3 Moderate decrease in GFR 30-59 4 Severe decrease in GFR 15-29 5 Kidney failure <15 (or dialysis) 21 Reference Range and Interpretation: TnI (ng/mL) Interpretation Less Than 0.03 ng/mL Not supportive of diagnosis of DC 0.03 - 0.50 ng/mL Indeterminate: suggest serial studies if clinically indicated. Greater than 0.5 ng/mL Consistent with diagnosis of DC 22 Desirable <150 Borderline high 150-199 High 200-499 Very High >500 23 Desirable <200 Borderline high 200-239 High >239 24 Low <40 Desirable: 40-60 High: >60 25 Desirable: <100 mg/dL Near Optimal: 100-129 mg/dL Borderline High: 130-159 mg/dL High: 160-189 mg/dL Very High: >189 mg/dL 26 Serum levels of PSA measured using the [employer] DXI Hybritech immunoassay should not be interpreted as absolute evidence of the presence or absence of disease. The PSA value should be used in conjunction with other pertinent clinical diagnostic procedures. A PSA value in the range of 0.1 to 0.6 ng/ml is indeterminate if being used as an indicator of recurrent or residual disease. The values obtained with different assay methods or kits cannot be used interchangeably. 27 Because ethnic data is not always readily available, this report includes an eGFR for both -Americans and non- Americans. The National Kidney Disease Education Program (NKDEP) does not endorse the use of the MDRD equation for patients that are not between the ages of 18 and 70, are , have extremes of body size, muscle mass, or nutritional status, or are non- or non-. According to the National Kidney Foundation, irrespective of diagnosis, the stage of the disease is based on the level of kidney function: Stage Description GFR(mL/min/1.73 m(2)) 1 Kidney damage with normal or decreased GFR 90 2 Kidney damage with mild decrease in GFR 60-89 3 Moderate decrease in GFR 30-59 4 Severe decrease in GFR 15-29 5 Kidney failure <15 (or dialysis) 28 Potassium reference range changed effective 03/31/14 29 Because ethnic data is not always readily available, this report includes an eGFR for both -Americans and non- Americans. The National Kidney Disease Education Program (NKDEP) does not endorse the use of the MDRD equation for patients that are not between the ages of 18 and 70, are , have extremes of body size, muscle mass, or nutritional status, or are non- or non-. According to the National Kidney Foundation, irrespective of diagnosis, the stage of the disease is based on the level of kidney function: Stage Description GFR(mL/min/1.73 m(2)) 1 Kidney damage with normal or decreased GFR 90 2 Kidney damage with mild decrease in GFR 60-89 3 Moderate decrease in GFR 30-59 4 Severe decrease in GFR 15-29 5 Kidney failure <15 (or dialysis) 30 Desirable <150 Borderline high 150-199 High 200-499 Very High >500 31 Desirable <200 Borderline high 200-239 High >239 32 Low <40 Desirable: 40-60 High: >60 33 Desirable <100 Near Optimal 100-129 Borderline high 130-159 High 160-189 Very High >189 34 Because ethnic data is not always readily available, this report includes an eGFR for both -Americans and non- Americans. The National Kidney Disease Education Program (NKDEP) does not endorse the use of the MDRD equation for patients that are not between the ages of 18 and 70, are , have extremes of body size, muscle mass, or nutritional status, or are non- or non-. According to the National Kidney Foundation, irrespective of diagnosis, the stage of the disease is based on the level of kidney function: Stage Description GFR(mL/min/1.73 m(2)) 1 Kidney damage with normal or decreased GFR 90 2 Kidney damage with mild decrease in GFR 60-89 3 Moderate decrease in GFR 30-59 4 Severe decrease in GFR 15-29 5 Kidney failure <15 (or dialysis) 35 HDL Interpretation: Undesirable: High Risk: Less than 40 mg/dL Desirable: Low Risk: Greater than 60 mg/dL 36 LDL Interpretation: Low Risk Optimal Level: LDL Less than 100 mg/dL Near or Above Optimal: LDL 100-129 mg/dL Borderline High Risk: LDL 130-159 mg/dL High Risk: LDL 160-189 mg/dL Very High Risk: LDL Greater than 189 mg/dL 37 Serum levels of PSA measured using the [employer] DXI Hybritech immunoassay should not be interpreted as absolute evidence of the presence or absence of disease. The PSA value should be used in conjunction with other pertinent clinical diagnostic procedures. A PSA value in the range of 0.1 to 0.6 ng/ml is indeterminate if being used as an indicator of recurrent or residual disease. The values obtained with different assay methods or kits cannot be used interchangeably. 38 Anion gap measurement may be of limited value in the presence of any alkalosis, especially in a combined acid base disorder. . 39 A metabolite of Naproxen, O-desmethylnaproxen, has been shown to interfere with the Jendrassik-Peace method for measuring total bilirubin. Samples from patients who have taken Naproxen have shown spurious elevation in total bilirubin levels. 40 Because ethnic data is not always readily available, this report includes an eGFR for both -Americans and non- Americans. The National Kidney Disease Education Program (NKDEP) does not endorse the use of the MDRD equation for patients that are not between the ages of 18 and 70, are , have extremes of body size, muscle mass, or nutritional status, or are non- or non-. According to the National Kidney Foundation, irrespective of diagnosis, the stage of the disease is based on the level of kidney function: Stage Description GFR(mL/min/1.73 m(2)) 1 Kidney damage with normal or decreased GFR 90 2 Kidney damage with mild decrease in GFR 60-89 3 Moderate decrease in GFR 30-59 4 Severe decrease in GFR 15-29 5 Kidney failure <15 (or dialysis) 41 CHOLESTEROL INTERPRETATION: Desirable: Less than 200 MG/DL Borderline-High Risk: 200-239 MG/DL High-Risk: 240 MG/DL and over 42 HDL INTERPRETATION: Undesirable: High Risk: Less than 40 MG/DL Desirable: Low Risk: Greater than 60 MG/DL 43 LDL INTERPRETATION: Low Risk Optimal Level: LDL Less than 100 MG/DL Near or Above Optimal: LDL 100-129 MG/DL Borderline High Risk: LDL 130-159 MG/DL High Risk: LDL 160-189 MG/DL Very High Risk: LDL Greater than 189 MG/DL 44 THERAPEUTIC TARGET FOR THE TREATMENT OF DIABETES MELLITUS PATIENTS IS <7% HBA1C, AND IN SELECTIVE PATIENTS <6.0%. PLEASE REFER TO [place] [employer] DIABETIC CARE GUIDELINES FOR FURTHER INFORMATION. 45 * SERUM LEVELS OF PSA MEASURED USING THE [employer] ACCESS HYBRITECH IMMUNOASSAY SHOULD NOT BE INTERPRETED ABSOLUTE EVIDENCE OF THE PRESENCE OR ABSENCE OF DISEASE. THE PSA VALUE SHOULD BE USED IN CONJUNCTION WITH OTHER PERTINENT CLINICAL DIAGNOSTIC PROCEDURES. A PSA value in the range of 0.1 to 0.6 ng/ml is indeterminate if being used as an indicator of recurrent or residual disease. . The values obtained with different assay methods of kits cannot be used interchangeably. 46 * SERUM LEVELS OF PSA MEASURED USING THE [employer] ACCESS HYBRITECH IMMUNOASSAY SHOULD NOT BE INTERPRETED ABSOLUTE EVIDENCE OF THE PRESENCE OR ABSENCE OF DISEASE. THE PSA VALUE SHOULD BE USED IN CONJUNCTION WITH OTHER PERTINENT CLINICAL DIAGNOSTIC PROCEDURES. A PSA value in the range of 0.1 to 0.6 ng/ml is indeterminate if being used as an indicator of recurrent or residual disease. . 47 THERAPEUTIC TARGET FOR THE TREATMENT OF DIABETES MELLITUS PATIENTS IS <7% HBA1C, AND IN SELECTIVE PATIENTS <6.0%. PLEASE REFER TO [place] [employer] DIABETIC CARE GUIDELINES FOR FURTHER INFORMATION. 48 Anion gap measurement may be of limited value in the presence of any alkalosis, especially in a combined acid base disorder. . 49 Note change in reference range as of 01/18/08. The change was based on recommendations from the [place] [employer]. 50 Please note change in reference range effective 07 . 51 Because ethnic data is not always readily available, this report includes an eGFR for both -Americans and non- Americans. The National Kidney Disease Education Program (NKDEP) does not endorse the use of the MDRD equation for patients that are not between the ages of 18 and 70, are , have extremes of body size, muscle mass, or nutritional status, or are non- or non-. According to the National Kidney Foundation, irrespective of diagnosis, the stage of the disease is based on the level of kidney function: Stage Description GFR(mL/min/1.73 m(2)) 1 Kidney damage with normal or decreased GFR 90 2 Kidney damage with mild decrease in GFR 60-89 3 Moderate decrease in GFR 30-59 4 Severe decrease in GFR 15-29 5 Kidney failure <15 (or dialysis) 52 PATIENT MAY HAVE RESULTS PER DOCTOR'S AUTHORIZATION. Questions regarding this report should be directed to your doctor. 53 THERAPEUTIC TARGET FOR THE TREATMENT OF DIABETES MELLITUS PATIENTS IS <7% HBA1C, AND IN SELECTIVE PATIENTS <6.0%. PLEASE REFER TO [place] [employer] DIABETIC CARE GUIDELINES FOR FURTHER INFORMATION. 54 HCT DETERMINED BY SPUN CRIT 55 H H Check Failed 56 * SERUM LEVELS OF PSA MEASURED USING THE [employer] ACCESS HYBRITECH IMMUNOASSAY SHOULD NOT BE INTERPRETED ABSOLUTE EVIDENCE OF THE PRESENCE OR ABSENCE OF DISEASE. THE PSA VALUE SHOULD BE USED IN CONJUNCTION WITH OTHER PERTINENT CLINICAL DIAGNOSTIC PROCEDURES. A PSA value in the range of 0.1 to 0.6 ng/ml is indeterminate if being used as an indicator of recurrent or residual disease. . 57 CHOLESTEROL INTERPRETATION: Desirable: Less than 200 MG/DL Borderline-High Risk: 200-239 MG/DL High-Risk: 240 MG/DL and over 58 HDL INTERPRETATION: Undesirable: High Risk: Less than 40 MG/DL Desirable: Low Risk: Greater than 60 MG/DL 59 LDL INTERPRETATION: Low Risk Optimal Level: LDL Less than 100 MG/DL Near or Above Optimal: LDL 100-129 MG/DL Borderline High Risk: LDL 130-159 MG/DL High Risk: LDL 160-189 MG/DL Very High Risk: LDL Greater than 189 MG/DL 60 Anion gap measurement may be of limited value in the presence of any alkalosis, especially in a combined acid base disorder. . 61 Note change in reference range as of 01/18/08. The change was based on recommendations from the [place] [employer]. 62 Please note change in reference range effective 07 . 63 Anion gap measurement may be of limited value in the presence of any alkalosis, especially in a combined acid base disorder. . 64 Classification: Desirable . 65 Classification: Low . 66 CALCULATED LDL APPROXIMATES THE VALUE OF A DIRECT LDL MEASUREMENT. Classification: Optimal Level . 67 * SERUM LEVELS OF PSA MEASURED USING THE [employer] ACCESS HYBRITECH IMMUNOASSAY SHOULD NOT BE INTERPRETED ABSOLUTE EVIDENCE OF THE PRESENCE OR ABSENCE OF DISEASE. THE PSA VALUE SHOULD BE USED IN CONJUNCTION WITH OTHER PERTINENT CLINICAL DIAGNOSTIC PROCEDURES. A PSA value in the range of 0.1 to 0.6 ng/ml is indeterminate if being used as an indicator of recurrent or residual disease. . Procedures Date Code Description Status 12/16/2016 [id number] Diabetic Retinal Eye Exam Completed 06/09/2015 09259 ECHO Transthorasic Realtime 2D W Doppler & Color Flow Completed Hosp 06/06/2015 [id number] Diabetic Retinal Eye Exam Completed 06/21/2012 Inject/Drain Joint/Bursa Major W/O US Completed 06/09/2012 Inject/Drain Joint/Bursa Major W/O US Completed 06/02/2012 Inject/Drain Joint/Bursa Major W/O US Completed 05/10/2012 17300 Rad Exam; Knee Comp Completed 05/10/2012 50535 Rad Exam; Knee Comp Completed 05/10/2012 16592 Rad Exam; Knee Comp Completed 10/01/201185431 Inject/Drain Joint/Bursa Major W/O US Completed 09/24/2011 Inject/Drain Joint/Bursa Major W/O US Completed 09/17/2011 Inject/Drain Joint/Bursa Major W/O US Completed 08/01/2009 99912 EKG Tracing & Interpretation Completed 02/12/2008 [id number] Colonoscopy Completed 12/22/2001 [id number] Colonoscopy Completed Encounters Type Date Location Provider Dx Diagnosis Office Visit 12/23/2017 [facility] Noah Cornell MD L56.8 Oth acute skin 8:40a changes due to ultraviolet radiation L82.1 Other seborrheic keratosis B35.3 Tinea pedis D22.5 Melanocytic nevi of trunk Office Visit 07/18/2017 10:20a [facility] Sharon Diggs Z00.00 Enchaley Hoffman M.D. general adult [facility] medical exam w/o abnormal findings I10 Essential (primary) hypertension R73.01 Impaired fasting glucose G47.30 Sleep apnea, unspecified E78.00 Pure hypercholesterolemia, unspecified Z13.6 Encounter for screening for cardiovascular disorders Office Visit 01/17/2017 [facility] [place]gs Z01.810 Encounter for 10:00a Talya Hoffman M.D. preprocedural [facility] cardiovascular examination H26.9 Unspecified cataract I10 Essential (primary) hypertension R73.01 Impaired fasting glucose G47.30 Sleep apnea, unspecified E78.00 Pure hypercholesterolemia, unspecified Office Visit 07/26/2016 3:00p [facility] Diggs Z00.00 Encntr elijah Hoffman M.D. general adult [place] medical exam w/o abnormal findings I10 Essential (primary) hypertension R73.01 Impaired fasting glucose G47.30 Sleep apnea, unspecified G45.9 Transient cerebral ischemic attack, unspecified E78.00 Pure hypercholesterolemia, unspecified Z12.5 Encounter for screening for malignant neoplasm of prostate Z23 Encounter for immunization Office Visit 11/27/2015 3:40p Bashir Diggs M54.5 Low back pain Talya Hoffman M.D. Office Visit 07/24/2015 3:00p [facility] aBo Diggs Z01.810 Encounter for Talya Hoffman M.D. preprocedural cardiovascular examination M17.11 Unilateral primary osteoarthritis, right knee I10 Essential (primary) hypertension R73.01 Impaired fasting glucose G47.30 Sleep apnea, unspecified G45.9 Transient cerebral ischemic attack, unspecified Office Visit 06/16/2015 2:40p [facility] [place] G45.9 Transient cerebral Medicine Ally Hoffman ischemic attack, unspecified I10 Essential (primary) hypertension G47.30 Sleep apnea, unspecified Z23 Encounter for immunization Office Visit 06/09/2015 [facility] Claudia Romero G45.9 Transient 3:09p Clinic cerebral ischemic attack, unspecified Office Visit 06/09/2015 [facility] Jaden G45.9 Transient 10:52a Assoc,navin Edwards M.D. cerebral ischemic attack, unspecified I10 Essential (primary) hypertension [facility] Assoc,navin Edwarsd M.D. cerebral ischemic Hospitalists attack, unspecified M19.90 Unspecified osteoarthritis, unspecified site I10 Essential (primary) hypertension Office Visit 05/06/2014 3:00p [facility] Diggs V70.0 Examination Talya Hoffman M.D. General Medical Routine [facility] 401.1 Hypertension Benign 790.21 Impaired Fasting Glucose 780.57 Unspecified Sleep Apnea 715.16 Osteoarthrosis Localized Prim Lower Leg V76.44 Screening For Malig Angelo Prostate Office Visit 07/06/2013 9:00a [facility] Diggs 401.1 Hypertension Benign Talya Hoffman M.D. 790.21 Impaired Fasting Glucose 780.57 Unspecified Sleep Apnea 715.16 Osteoarthrosis Localized Prim Lower Leg V73.89 Screening Examination Viral Diseases Other Spec Office Visit 10/31/2012 9:00a [facility]ao [place] V70.0 Examination Talya Hoffman M.D. General Medical Routine AT [facility] 790.21 Impaired Fasting Glucose 401.1 Hypertension Benign 780.57 Unspecified Sleep Apnea 715.16 Osteoarthrosis Localized Prim Lower Leg 477.9 Rhinitis Allergic Cause Unspec V76.44 Screening For Malig Angelo Prostate Office Visit 05/10/2012 1:30p Joint Marika Cochran, 719.46 Pain Joint Lower of Bashir Mike.Marielena Leg Office Visit 04/07/2012 9:40a [facility]. 401.1 Hypertension Talya Hoffman M.D. Benign 780.57 Unspecified Sleep Apnea 790.21 Impaired Fasting Glucose 715.16 Osteoarthrosis Localized Prim Lower Leg Office Visit 11/12/2011 Joint Marika Cochran, 715.16 Osteoarthrosis 8:30a of [facility] M.DPrincess Localized Prim Lower Leg Office Visit 09/03/2011 Joint Marika Cochran, 715.16 Osteoarthrosis 10:00a of Bashir M.DPrincess Localized Prim Lower Leg Office Visit 08/30/2011 [facility] Internal [facility] [place] 719.46 Pain Joint Lower Leg 11:00a Talya Hoffman M.D. Office Visit 07/28/2011 [facility]. V70.0 Examination General 9:00a Talya Hoffman M.D. Medical Routine AT [facility] 401.1 Hypertension Benign 780.57 Unspecified Sleep Apnea 790.21 Impaired Fasting Glucose V06.1 Yrcooxiyqh-Upbmkeg-Nhhgploj Combined (DTaP) Office Visit 01/29/2011 9:20a DO Not Use [facility] Bao E. 401.1 Hypertension Benign AT Nicole Hoffman M.D. 790.21 Impaired Fasting Glucose 780.57 Unspecified Sleep Apnea V76.44 Screening For Malig Angelo Prostate Office Visit 07/31/2010 9:00a DO Not Use [facility] [place]. 401.1 Hypertension Benign AT Nicole Hoffman M.D. 477.9 Rhinitis Allergic Cause Unspec 790.21 Impaired Fasting Glucose 780.57 Unspecified Sleep Apnea Office Visit 02/06/2010 9:00a DO Not Use Manager Hospitality Bao [facility]. 401.1 Hypertension Benign AT Nicole Hoffman M.D. 477.9 Rhinitis Allergic Cause Unspec 790.21 Impaired Fasting Glucose Office Visit 08/01/2009 9:40a DO Not Use Manager Hospitality Bao [facility]. V70.0 Examination AT Nicole Hoffman M.D. General Medical Routine AT Health Care Facility 401.1 Hypertension Benign 477.9 Rhinitis Allergic Cause Unspec 790.21 Impaired Fasting Glucose Office Visit 06/28/2008 9:30a Tereso Diggs V70.0 Examination Assoc AT Ally Hoffman [facility] Routine AT Health Care Facility 477.9 Rhinitis Allergic Cause Unspec 401.1 Hypertension Benign Office Visit 06/20/2007 9:00a Tereso Diggs 401.1 Hypertension Benign Assoc AT Ally Hoffman [facility] V70.0 Examination General Medical Routine AT Health Care Facility Office Visit 02/09/2007 10:15a Tereso Diggs 401.1 Hypertension Benign Assoc AT Ally Hoffman [facility] Plan of Treatment 09/29/2018 - Bao Hoffman M.D.Z00.00 Encounter for general adult medical examination without abnoI10 Essential (primary) hypertensionNew Orders:EKG, Ordered: 09/29/18Comments:BP high today and no recent home BP checks. Weight up 10 lbs from last year, but similar to past weights. Pt has been on a road trip for work and is eating out regularly now, likely with a much higher salt intake. Advised pt resume regular home BP checks over the next 7-10 days and send in BPs for review. Recheck fasting labs. Diet, exercise, and weight loss again advised. If home BPs high liketoday, increased Losartan dose indicatedFollow up:call in home BPs in 7-10 days.G47.30 Sleep apnea, unspecifiedComments:Pt using a dental appliance; no sleep problems or observed irregular yshivgoP84.01 Impaired fasting glucoseComments:Diet Rx only; A1c today 5.8.
[2018-10-03] MEDS ORDERED: Aspirin TAB* 325 MG PO ONE (09:40)
[2018-10-03] MEDS ORDERED: Clopidogrel TAB* 75 MG PO ONE (09:42)
[2018-10-03 09:55] LABS: ABS Lymphocytes 1.2 10^3/ul (1.0-4.8); ABS Monocytes 0.5 10^3/ul (0-0.8); ABS Neutrophils 3.9 10^3/ul (1.5-7.7); Eosinophil % 0.7 %; Hematocrit 46 % (42-52); Hemoglobin 15.9 g/dL (14.0-18.0); Lymphocyte % 20.9 %; Mean Corpuscular HGB Conc 35 g/dL (31-36); Mean Corpuscular Hemoglobin 33 pg (27-31); Mean Corpuscular Volume 93 fL (80-94); Mean Platelet Volume 8.1 fL (7.4-10.4); Platelet Count 133 10^3/uL (150-450); Red Blood Count 4.89 10^6 /uL (4.18-5.48); Red Cell Distribution Width 13 % (10.5-15); White Blood Count 5.7 10^3/uL (3.5-10.8)
[2018-10-03 09:57] LABS: Activated Partial Thrombo Time 30.5 seconds (26.0-36.3); INR 1.13 (0.82-1.09)
[2018-10-03 10:10] LABS: Albumin 4.3 g/dL (3.2-5.2); Albumin/Globulin Ratio 1.8 (1-3); BUN/Creatinine Ratio 21.6 (8-20); Calcium 9.4 mg/dL (8.6-10.3); EGFR African American 127.3 (>60); EGFR Non-African American 105.2 (>60); Globulin 2.4 g/dL (2-4); HDL Cholesterol 43.6 mg/dL; Potassium 4.2 mmol/L (3.5-5.0); Total Bilirubin 0.8 mg/dL (0.2-1.0); Total Protein 6.7 g/dL (6.4-8.9); Troponin I 0.01 ng/mL (<0.04)
[2018-10-03] MEDS ORDERED: Iodixanol* (CONTRAST) 320 MG/ML 100 ML SDV IV ONE (10:13)
[2018-10-03] MEDS ORDERED: Aspirin 81 mg CHEW TAB* 81 MG TAB.CHEW PO ONE (10:31)
[2018-10-03] MEDS ORDERED: Al Hydrox/Mg Hydrox/Simet LIQ* 30 ML UDC PO PRN (11:38)
[2018-10-03] MEDS ORDERED: Acetaminophen TAB* 325 MG PO PRN (11:38)
[2018-10-03] MEDS ORDERED: Enoxaparin(*) 40 MG/0.4 ML SYR SUBCUT SCH (12:00)
--- NOTE | 2018-10-03 12:53 | HP ---
CC: Dr. Hoffman; Dr. Herrera * HISTORY AND PHYSICAL: DATE OF ADMISSION: 10/03/18 PRIMARY CARE PROVIDER: Dr. Hoffman. CHIEF COMPLAINT: Right-sided facial numbness. HISTORY OF PRESENT ILLNESS: Garcia Hu is a 67-year-old male with history of hypertension, dyslipidemia and TIA in 2016, who presented to the hospital complaining of right-sided facial numbness. The patient stated that he had a similar presentation in 2016 when he was noted to be hypertensive and diagnosed with TIA. At that point, he was placed on baby aspirin. He saw Dr. Hoffman for followup just this Tuesday 4 days ago, at that point he was noted to be hypertensive with systolic pressures in the 180s and was advised to continue to measure his blood pressure and watch his diet. He was also discontinued from the baby aspirin that he had been taking up until then. The patient stated that he moved to [place] 6 months ago and he was just visiting [place] to move the remaining part of his things from where he lived here. On the way, he also had an appointment with Dr. Hoffman to follow up. He stated that he had been staying in motels and eating restaurant food. He has not been able to watch his diet and he has not been exercising. Today in the morning when the event happened, he actually was driving from [place] into [place]. Approximately half an hour of a drive before he reached [place], he developed the right-sided numbness on his lower part of the face. He continued on driving and drove himself into the hospital. He also noted that he had tingling in fingers of bilateral hands. He denies any chest pain or shortness of breath. He has noted occasional headache for the past 4 days. He denies any visual changes. His right-sided facial numbness resolved by the time he presented to the ED. He was evaluated by the neurologist, Dr. Herrera, who recommended for the patient to be placed on aspirin and Plavix and be placed on overnight observation. The patient also had CTA of the head and neck that was basically unremarkable. He is going to be placed on overnight observation with a diagnosis of likely TIA. Please also note that the patient's systolic pressures in the ED were 180s, but once he calmed down, he is now in the 160s. PAST MEDICAL HISTORY: 1. TIA in 2016 with similar symptoms of right-sided facial numbness. At that point, the patient also was hypertensive. 2. History of hypertension. 3. History of multiple arthroscopic knee surgeries. 4. History of dyslipidemia. 5. Possible obstructive sleep apnea. MEDICATIONS: Include: 1. Losartan 25 mg daily. 2. Toprol-XL 50 mg daily. 3. Pravachol 10 mg daily. Those medications have not been changed for the past several months. ALLERGIES: No known drug allergies. FAMILY HISTORY: Positive for father who of prostate cancer. Mother's cause of is unknown. SOCIAL HISTORY: The patient quit smoking 18 years ago. He drinks an occasional glass of wine. He is and lives with his , who is his surrogate. He lives currently in [place] and he is in the process of moving his things from [place] to [place]. 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 REVIEW OF SYSTEMS: Please see history of present illness. All the remaining 12 systems were reviewed with the patient and were otherwise negative. PHYSICAL EXAMINATION GENERAL: The patient is a very pleasant 67-year-old male, who is in no acute distress. Alert, awake, and oriented x3. VITAL SIGNS: Blood pressure currently of 161/92, heart rate of 61 and regular, respiratory rate 13, oxygen saturation 94% on room air, temperature of 98.7. HEENT: Head: Atraumatic, normocephalic. Eyes: Pupils are equal, reactive to light and accommodation. Oropharynx is clear. Mucosa moist. NECK: Supple. No JVD. No bruits bilaterally. RESPIRATORY: Clear to auscultation bilaterally. CARDIOVASCULAR: Regular rate and rhythm. No murmur. ABDOMEN: Soft, nontender. Bowel sounds are present in all 4 quadrants. EXTREMITIES: There is no edema. Pulses are +2 bilaterally. No clubbing or cyanosis. NEUROLOGIC EVALUATION: Speech is clear. Cranial nerves II through XII are grossly intact. Motor strength is 5/5 bilaterally. [id number] is intact. PSYCHIATRIC EVALUATION: The patient is pleasant and cooperative with evaluation and oriented x3. DIAGNOSTIC STUDIES/LAB DATA: Laboratory data showed white blood cell count of 5.7, hemoglobin of 15.9, hematocrit of 46, and platelets of 133. Sodium was 140 , potassium 4.2, chloride 106, carbon dioxide 26, BUN 16, creatinine 0.74. Liver function tests unremarkable apart from slight elevation of ALT at 58. LDL cholesterol of 56. CT angiogram of the head obtained on 10/03/18 showed atheromatous disease with no internal carotid artery stenosis. There is also no external carotid artery stenosis either. The patient's EKG showed left anterior hemiblock with a heart rate of 67 beats per minute and otherwise normal sinus rhythm. Brain CT, impression: "No acute intracranial pathology." Portable chest x-ray, impression: "No active cardiopulmonary disease." ASSESSMENT AND PLAN: A 67-year-old male with history of hypertension, dyslipidemia and transient ischemic attack, who presents with similar symptoms of transient ischemic attack with lower part of right face numbness that resolved within 30 minutes, similar symptoms to 2016. The patient also is hypertensive during the evaluation the same as 3 years ago. The patient is going to be placed on overnight observation with continuation of evaluation for transient ischemic attack. As per discussion with Dr. Herrera who recommended the patient is going to be placed on aspirin and Plavix and transthoracic echocardiogram with bubble study is going to be obtained. In regards to the patient's hypertension, for the time being, we will allow for the patient to be hypertensive, but restart his blood pressure medications in the morning. Of note, he already took his blood pressure medications today and despite that, he had been markedly hypertensive when presented. The patient's LDL was 56 and the patient is going to be continued on statin during the hospital stay. For DVT prophylaxis, the patient is going to be placed on Lovenox subcutaneously. The patient's code status is full. His surrogate is his . TIME SPENT: Approximately 65 minutes was spent on admission of this patient, more than half that time was spent [id number] with the patient during the interview and physical exam. [id number]/[facility] #: [id number] BRANNON
--- NOTE | 2018-10-03 14:58 | CONS ---
CONSULTATION REPORT: DATE OF CONSULT: 10/03/18 PATIENT OF: Dr. Fuller and Dr. Hoffman. HISTORY OF PRESENT ILLNESS: This is a 67-year-old man with a history of hypertension, dyslipidemia and a TIA in 2016, who presented with unilateral numbness on the right side of the face and arm. There were no speech problems, no headache. He has lived here in the past and moved to [place] and was visiting here for the past couple of weeks' time. Of note, he had seen Dr. Hoffman 4 days ago and he was advised to continue to monitor his blood pressure, which had systolics in the 180s and he was discontinued from the baby aspirin that he took until then. PAST MEDICAL HISTORY: He had his prior TIA in 2016 and also had right-sided numbness. He has hypertension, dyslipidemia, and possible obstructive sleep apnea. PAST SURGICAL HISTORY: Multiple arthroscopic surgeries. MEDICATIONS: Include: 1. Losartan 25 mg daily. 2. Toprol-XL 50 mg daily. 3. Pravachol 10 mg daily. He was recently stopped on the aspirin. ALLERGIES: He has no known drug allergies. FAMILY HISTORY: The father had prostate cancer. The mother's cause of is unknown. SOCIAL HISTORY: He quit smoking 18 years ago and drinks an occasional glass of wine. He lives with his . REVIEW OF SYSTEMS: Negative in all 14 spheres. PHYSICAL EXAM: Temperature 97, pulse 65, respirations 20, blood pressure 157/ 76. He is alert and oriented with normal speech and comprehension. Cranial nerves II through XII were intact. Fundi were benign. Motor exam revealed normal tone, strength, coordination. Sensation intact to light touch. He had no visual field cuts. NIH Stroke Scale was done and he had a score of 0 at 09: 15 this morning. DIAGNOSTIC STUDIES/LAB DATA: His CTA showed atheromatous disease with no significant stenosis, aneurysm, or other vascular abnormality. His CT scan showed no acute intracranial pathology. There were some mild hypodensities on CT scan, which reflect chronic changes. His MRI scan done at the time of his last TIA was normal without signs of small vessel disease or acute stroke. Blood work revealed normal CBC. INR of 1.13, PTT normal. Normal CMP other than glucose of 158. LDL was 56. IMPRESSION AND PLAN: Garcia had most likely a transient ischemic attack, which was cleared quickly. He will be getting an echo with bubble study and he did not have the bubble study before. He will be also getting an MRI scan. If he would be a candidate for evaluating for sleep apnea and to try to reduce his cardiovascular risk factors, he should be on aspirin and Plavix for now with the assumption that this is atherosclerotic disease. We will assess after his echo is done. We will need to decide whether he will need long-term monitoring to rule out cardiac arrhythmia. At this point, with the size of his transient ischemic attack, this most likely was a small vessel disease rather than cardiac and embolic. [id number]/[facility] #: [id number] BRANNON
[2018-10-03] MEDS ORDERED: Perflutren Lipid Microsphere* 3 ML VIAL ONE (16:00)
[2018-10-03] MEDS ORDERED: Atorvastatin* 10 MG TAB PO SCH (17:00)
--- NOTE | 2018-10-03 17:03 | ECHO ---
*[facility]* [place] [address] Fax #: [phone] Transthoracic Echocardiogram Patient: Mayte, Height: 73 in / Garcia V 185.4 cm : 1950 Weight: 290.4 lb / Study Date: 10/03/2018 132 kg Age: 67 BP: 161 / 92 Gender: M BMI/BSA: 38.4 kg/m^2 HR: 62 bpm / 2.52 m^2 *Bomb Technician: * Ines Noel RDCS RN *Referring Physician: * Courtney Fuller *Reading Physician: * Ayo Miranda MD Indications: TIA. History: Risk factors: Former tobacco use. Hypertension. Diabetes mellitus. TIA. Obese. Conclusions Summary: 1. Left ventricle: The cavity size is normal. Wall thickness is moderately increased. Systolic function is at the lower limits of normal. The estimated ejection fraction is 50-55%. There are no regional wall motion abnormalities. 2. Atrial septum: Bubble study was negative 3. Mitral valve: There is trivial regurgitation. 4. Aortic valve: There is no evidence of stenosis. There is no significant regurgitation. 5. Tricuspid valve: There is trivial regurgitation. 6. Pericardium, extracardiac: There is no pericardial effusion. 7. Impressions: Unchanged from the study of 06/08/2015. Study data: Transthoracic echocardiogram. Procedure: Transthoracic echocardiography was performed. Image quality was fair. The study was technically limited due to body habitus and Smoking history. A total of 5 ml of diluted Definity was administered IV by Kayleigh Bah RN for image enhancement. A bubble study was performed using agitated saline IV. Images 104 and 105. Complete 2D, spectral Doppler, and color flow Doppler. Patient status: Inpatient. Patient room number: 443-02. Rhythm: Normal sinus rhythm with PVC's. Findings Left ventricle: The cavity size is normal. Wall thickness is moderately increased. Systolic function is at the lower limits of normal. The estimated ejection fraction is 50-55%. There are no regional wall motion abnormalities. Doppler parameters are consistent with abnormal left ventricular relaxation (grade 1 diastolic dysfunction). Right ventricle: The cavity size is normal. Systolic function is low normal. Left atrium: The atrium is mildly dilated. Right atrium: The atrium is mildly dilated. Atrial septum: Bubble study was negative Images 104 and 105. Mitral valve: The leaflets are mildly thickened. There is no evidence of stenosis. There is trivial regurgitation. Aortic valve: The valve is trileaflet. The leaflets are mildly thickened. There is no evidence of stenosis. There is no significant regurgitation. The LVOT to aortic valve VTI ratio is 0.94. The ratio of LVOT to aortic valve peak velocity is 0.82. The ratio of LVOT to aortic valve mean velocity is 0.8. The mean systolic gradient is 3.0 mm Hg. The peak systolic gradient is 5.0 mm Hg. Tricuspid valve: The valve is structurally normal. There is no evidence of stenosis. There is trivial regurgitation. Pulmonic valve: Not well visualized. There is no evidence of stenosis. There is trivial regurgitation. The peak systolic gradient is 3.0 mm Hg. Aorta: Aortic root: The aortic root is mildly dilated. Ascending aorta: The ascending aorta is not dilated. Aortic arch: The aortic arch is not dilated. Pericardium: There is no pericardial effusion. Pulmonary arteries: Not well visualized. Systemic veins: Not well visualized. Measurements Left ventricle Value Ref Right atrium Value Ref JASPAL, LAX 5.1 cm 4.2 - 5.8 ML dim, ES, A4C 4.0 cm 2.6 - 4.4 ESD, LAX 3.6 cm 2.5 - 4.0 SI dim, ES, A4C (H) 5.9 cm 3.4 - 5.3 FS, LAX 31 % 25 - 43 PW, ED, LAX (H) 1.6 cm 0.6 - 1.0 Aortic valve Value Ref IVS/PW, ED 1.01 Shy diam, ED 2.6 cm --------- E', lat shy, TDI (L) 5.4 cm/sec >=10.0 Peak v, S 1.14 m/sec --- ------ E/e', lat shy, 9 Mean v, S 0.86 m/sec ------ --- TDI VTI, S 24.4 cm --------- E', med shy, TDI (L) 5.3 cm/sec >=7.0 Mean grad, S 3.0 mm Hg --- ------ E/e', med shy, 9 Peak grad, S 5.0 mm Hg ------ --- TDI E', avg, TDI 5.4 cm/sec Mitral valve Value Ref E/e', avg, TDI 9 <=14 Peak E 0.5 m/sec --- ------ Peak A 0.78 m/sec --------- LVOT Value Ref Decel time 359 ms --------- Peak lexa, S 0.93 m/sec Peak E/A ratio 0.6 --------- Mean lexa, S 0.69 m/sec VTI, S 22.9 cm Aortic root Value Ref Mean grad, S 2 mm Hg Root diam 3.9 cm <4.5 Root max diam, ED 3.9 cm <4.5 Ventricular septum Value Ref IVS, ED, LAX (H) 1.6 cm 0.6 - 1.0 Ascending aorta Value Ref AAo AP diam, S 3.4 cm --------- Right ventricle Value Ref JASPAL, LAX 3.0 cm Aortic arch Value Ref JASPAL minor ax, (H) 4.0 cm 1.9 - 3.5 Arch diam 3.1 cm --------- A4C mid Decending aorta Value Ref Left atrium Value Ref Artemio peak lexa 0.72 m/sec --------- AP dim, ES 3.80 cm 3.00 - 4.00 ML dim, A4C 4.3 cm SI dim, A4C 6.3 cm Vol/bsa, ES, 1-p 27 ml/m^2 12 - 37 A4C Vol/bsa, ES, 1-p (H) 45 ml/m^2 11 - 43 A2C Vol/bsa, ES, A/L (H) 36 ml/m^2 16 - 34 Legend: (L) and (H) ramu values outside specified reference range. Prepared and electronically signed by Ayo Miranda MD 10/03/2018 17:03
[2018-10-04 06:18] LABS: ABS Eosinophils 0.1 10^3/ul (0-0.6); ABS Lymphocytes 1.5 10^3/ul (1.0-4.8); ABS Monocytes 0.4 10^3/ul (0-0.8); Eosinophil % 1.8 %; Hematocrit 45 % (42-52); Hemoglobin 15.6 g/dL (14.0-18.0); Lymphocyte % 30.4 %; Mean Corpuscular HGB Conc 35 g/dL (31-36); Mean Corpuscular Hemoglobin 32 pg (27-31); Mean Corpuscular Volume 93 fL (80-94); Mean Platelet Volume 7.7 fL (7.4-10.4); Nucleated Red Blood Cells % 0.1; Platelet Count 129 10^3/uL (150-450); Red Blood Count 4.81 10^6 /uL (4.18-5.48); Red Cell Distribution Width 13 % (10.5-15); White Blood Count 5.1 10^3/uL (3.5-10.8)
[2018-10-04 06:45] LABS: BUN/Creatinine Ratio 18.2 (8-20); Calcium 8.9 mg/dL (8.6-10.3); EGFR African American 145.2 (>60)
[2018-10-04] MEDS ORDERED: Clopidogrel TAB* 75 MG PO SCH (09:00)
[2018-10-04] MEDS ORDERED: Aspirin EC TAB* 81 MG TAB.EC PO SCH (09:00)
[2018-10-04] MEDS ORDERED: Metoprolol Succinate XL TAB* 50 MG PO SCH (09:00)
[2018-10-04] MEDS ORDERED: Losartan TAB* 25 MG PO SCH (09:00)
[2018-10-04 13:15] VITALS: BP 152/85
--- NOTE | 2018-10-04 13:37 | DS ---
CC: Dr. Hoffman; Dr. Herrera* DISCHARGE SUMMARY: DATE OF ADMISSION: 10/03/18 DATE OF DISCHARGE: 10/04/18 PRIMARY CARE PROVIDER: Dr. Hoffman. DISCHARGE DIAGNOSES: 1. Transient right-sided facial numbness, likely due to transient ischemic attack. 2. Hypertension. CONDITION AT DISCHARGE: Stable. SECONDARY DIAGNOSES: 1. History of transient ischemic attack with very similar presentation back in 2016. 2. History of hypertension. 3. History of multiple arthroscopic knee surgeries. 4. Dyslipidemia. 5. Obstructive sleep apnea. MEDICATIONS AT DISCHARGE: Include: 1. Aspirin 81 mg daily. 2. Plavix 75 mg daily for a month total, then stop. 3. Pravachol 10 mg daily. 4. Cozaar increased to 50 mg daily from 25 mg previously. 5. Metoprolol succinate 50 mg daily. CONSULTATIONS DURING THE HOSPITAL STAY: Included Dr. Herrera from Neurology. LABORATORY DATA AND STUDIES PERFORMED DURING THE HOSPITAL STAY: Included on 01/15, white blood cell count of 5.1, hemoglobin of 15.2, hematocrit of 45, and platelets of 129. Sodium was 140, potassium of 4.0, chloride 106, carbon dioxide 29, BUN 12, creatinine 0.66. The patient's transthoracic echocardiogram was basically unchanged from 2016 with negative bubble study and in addition to that showed EF of 50% to 55%. The patient's MRI of the brain obtained on 10/03/18, impression: "Unremarkable MRI of the brain. No restricted diffusion to suggest acute infarct." CT angiogram of the head and neck was unremarkable and quoted in history and physical. HOSPITALIZATION COURSE: Garcia Hu is a 67-year-old male, who is now in the process of moving from [place] to [place] and he was driving for the past 1 week and eating in roadside restaurants, presented with transient right-sided facial numbness to our ED. The facial numbness lasted approximately half an hour and resolved spontaneously. On presentation, the patient was markedly hypertensive with systolic pressures in the 180s and the patient stated that he has had headaches occasionally for the past several days and his blood pressure at his primary care provider's office several days prior to his admission was also in the 180s. The patient was seen by Dr. Herrera and observed on telemetry monitored bed with no evidence of marked arrhythmias apart from occasional PVCs. His MRI of the brain was unremarkable, CTA of the head and neck also unremarkable. The echo with bubble study was negative. As per discussion with Dr. Herrera, the patient is recommended to be discharged home with aspirin and Plavix for a total of 1 month and then continue aspirin 81 mg only. It is recommended for the patient to follow up with his primary care provider to discuss further possibility of long-term cardiac monitoring in this patient with recurrent TIAs. PHYSICAL EXAMINATION: At the time of discharge, blood pressure of 142/82, heart rate of 57 and regular, respiratory rate 20, oxygen saturation 97% on room air, temperature of 97.8. General: The patient is a very pleasant 67-year -old male, who is in no acute distress. Alert, awake, and oriented x3. HEENT: Head: Atraumatic, normocephalic. Eyes: Pupils are equal, reactive to light and accommodation. Oropharynx is clear. Mucosa moist. Neck: Supple. No JVD. No bruits bilaterally. Cardiovascular: Regular rate and rhythm. No murmur. Respiratory: Clear to auscultation bilaterally. Abdomen: Soft, nontender. Bowel sounds are present in all 4 quadrants. Extremities: There is no edema. Pulses are +2 bilaterally. No clubbing or cyanosis. On neuro evaluation, speech is clear. Cranial nerves II through XII grossly intact. Motor strength is 5/5 bilaterally. Sensation grossly intact. Please note that this is a short summary of the patient's hospital stay. Please refer to further medical records for details. TIME SPENT: Approximately 40 minutes was spent on the patient's discharge. [id number]/[facility] #: [id number] [facility]ENTER[facility]arrison
== END 2018-10-04 13:15 | disposition home or self-care (01) ==
LOC: ED 08:59 → MEDTELE 11:38
PROVIDERS: ADMIT Internal Medicine; ATTEND Internal Medicine
DX: R20.0 Anesthesia of skin (principal); I10 Essential (primary) hypertension; Z86.73 Personal history of transient ischemic attack (TIA), and cerebral infarction without residual deficits; Z87.891 Personal history of nicotine dependence; Z98.890 Other specified postprocedural states; E78.5 Hyperlipidemia, unspecified; G47.33 Obstructive sleep apnea (adult) (pediatric); Z79.82 Long term (current) use of aspirin
CPT/HCPCS: 36415; 70450; 70496; 70498; 70551; 71045; 80048; 80053; 80061; 83605; 84484; 85025; 85610; 85730; 86850; 86900; 86901; 93005; 93306; 96360; 96372; 99284; A9270-GY; C8929; G0378; J1650; Q9967